=== PATIENT | female | born 1975 | race Caucasian/White ===

== ENCOUNTER 2016-05-11 11:23 | Emergency (ER) | payer OTHER ==
[2016-05-11 11:40] VITALS: RESP 18; TEMP 97.9
[2016-05-11] MEDS ORDERED: ALPRAZolam 1 MG TAB PO ONE (12:32)
--- NOTE | 2016-05-11 12:35 | EDPHY ---
H & P Time Seen by Provider: 05/11/16 12:16 HPI/ROS: CHIEF COMPLAINT: Anxiety HISTORY OF PRESENT ILLNESS: 41-year-old female history of depression, anxiety , chronic back pain, followed by the [facility], by psychiatrist Dr. Jayme Abdi, complaining of 2 years of debilitating anxiety , has failed multiple outpatient attempts at controlling her anxiety including different benzodiazepine regimens. She saw her psychiatrist this morning Dr. Jayme Abdi who recommend she go to the ER for mental health evaluation, possible hospitalization. Denies suicidal or homicidal ideation. No seizure. She is concerned that she will start withdrawing from benzodiazepines. PRIMARY CARE PROVIDER: REVIEW OF SYSTEMS: A ten point review of systems was performed and is negative with the exception of the items mentioned in the HPI PAST MEDICAL & SURGICAL HISTORY: Anxiety. Depression. Chronic pain. SOCIAL HISTORY:nonsmoker PHYSICAL EXAM (Prior to examination, patient consented to physical exam, hands were washed and my usual and customary physical exam procedures followed) 1) GENERAL: Well-developed, well-nourished, alert and oriented. Tearful. Appears anxious. 2) HEAD: Normocephalic, atraumatic 3) HEENT: Pupils equal, round, reactive to light bilaterally. Sclera anicteric. 4) NECK: Full range of motion, no meningeal signs. 5) LUNGS: Clear auscultation bilaterally, no wheezes, no rhonchi, no retractions. 6) HEART: Regular rate and rhythm, no murmur, no heave, no gallop. 7) ABDOMEN: No guarding, no rebound, no focal tenderness,, 8) MUSCULOSKELETAL: No peripheral edema or discoloration. 9) BACK: no visual or palpable abnormality. 10) SKIN: No rash, no petechiae. 11) Psychiatric: Patient is oriented X 3, there is no agitation. She appears anxious. DIFFERENTIAL DIAGNOSIS: Smoking Status: Never smoked Constitutional: Initial Vital Signs Temperature (C) 36.6 C 05/11/16 11:36 Heart Rate 79 05/11/16 11:36 Respiratory Rate 18 05/11/16 11:36 Blood Pressure 145/98 H 05/11/16 11:36 O2 Sat (%) 96 05/11/16 11:36 O2 Delivery Mode Room Air Allergies/Adverse Reactions: No Known Allergies Allergy (Verified 05/11/16 12:14) Home Medications: Medication Instructions Recorded Carbamazepine 05/11/16 Estradiol 05/11/16 Fentanyl 05/11/16 Risperdal 05/11/16 Topamax 05/11/16 Xanax 05/11/16 Zofran 05/11/16 morphINE IR 30 mg (*) 05/11/16 MDM/Departure - MDM Medications Given: Discontinued Medications Alprazolam (Xanax) 1 mg PO EDNOW ONE Stop: 05/11/16 12:33 Last Admin: 05/11/16 12:50 Dose: 1 mg ED Course/Re-evaluation: 12:30 p.m.: This patient does not meet criteria for a mental health hold. However, she was sent to the emergency department for a mental health evaluation by her psychiatrist Dr. Jayme Abdi after he evaluated her this morning. She has failed multiple outpatient attempts at controlling her anxiety which per, per her statement and her statements, is debilitating 1:25 p.m.: [facility] mental health services and I have spoken with the patient together. We have offered to send her to [facility] or to [facility]. We had a lengthy discussion and have discussed the dangers of benzodiazepine withdrawal from the dangers of going cold turkey, decreasing her seizure threshold, informed her that going cold turkey on benzodiazepines may result in seizure, . At this time she informs me that she would like to leave the emergency department, is declining any further care. She does not endorse suicidal homicidal ideation. I believe her to have decision-making capacity. At a minimum, I recommend she call her psychiatrist this afternoon.. She is agreeable with this - Depart Disposition: Home, Routine, Self-Care Clinical Impression: Anxiety Condition: Good Instructions: Anxiety (ED) Additional Instructions: You have declined further care from the emergency department, you have declined referrals to mental health and detox facilities. If you change your mind, you may return to the ER. Please call your psychiatrist this afternoon. Referrals: JAYME ABDI [Non Staff Provider ()] - 05/11/16 (Call your psychiatrist, Dr. Jayme Abdi this afternoon)
[2016-05-11 13:23] LABS: % IMMATURE GRANULYOCYTES 0.3 % (0.0-1.1); ABSOLUTE IMMATURE GRANULOCYTES 0.02 10^3/uL (0.00-0.10); ADD DIFF? NO; ADD MORPH? NO; ADD SCAN? NO; ATYPICAL LYMPHOCYTE FLAG 0 (0-99); FRAGMENT RBC FLAG 0 (0-99); HEMATOCRIT 46.9 % (38.0-47.0); HEMOGLOBIN 15.5 g/dL (12.6-16.3); LEFT SHIFT FLG 0 (0-99); LIPEMIA HEMOLYSIS FLAG 80 (0-99); MEAN CELL VOLUME 87.8 fL (81.5-99.8); MEAN PLATELET VOLUME 9.8 fL (8.7-11.7); PLATELET CLUMPS FLAG 0 (0-99); PLATELET COUNT 215 10^3/uL (150-400); RED BLOOD CELL COUNT 5.34 10^6/uL (4.18-5.33); RED CELL DISTRIBUTION WIDTH 13.2 % (11.5-15.2)
[2016-05-11 13:54] LABS: ANION GAP 9 mEq/L (8-16); CALCIUM 9.4 mg/dL (8.5-10.4); CARBON DIOXIDE 26 mEq/l (22-31); CHLORIDE 105 mEq/L (97-110); CREATININE 0.6 mg/dL (0.6-1.0); ETHANOL SERUM < 10 mg/dL (0-10); GLOMERULAR FILTRATION RATE > 60; GLUCOSE 98 mg/dL (70-100); POTASSIUM 3.8 mEq/L (3.5-5.2); SODIUM 140 mEq/L (134-144)
[2016-05-11 15:07] VITALS: BP 145/100; PULSE 76; O2SAT 95
== END 2016-05-11 15:05 | disposition home or self-care (01) ==
DX: F41.9 Anxiety disorder, unspecified (principal)
CPT/HCPCS: 80305; G0480